=== PATIENT | male | born 1935 | race Caucasian/White ===

== ENCOUNTER → 2018-09-24 | Outpatient (REF) | payer MEDICARE, OTHER | LOC: M LAB LCGH 10:57 | PROVIDERS: ATTEND Nurse Practitioner Family | DX: D04.4 Carcinoma in situ of skin of scalp and neck (principal) ==

== ENCOUNTER → 2020-12-10 | Outpatient (REF) | payer MEDICARE | LOC: M LAB REF 19:03 | PROVIDERS: ATTEND Dermatology | DX: C44.229 Squamous cell carcinoma of skin of left ear and external auricular canal (principal) ==

== ENCOUNTER → 2024-12-05 | Outpatient (CLI) | payer MEDICARE | LOC: M SOG 06:56 | PROVIDERS: ATTEND Neuromusculoskeletal Medicine, Sports Medicine | DX: M25.561 Pain in right knee (principal) ==

== ENCOUNTER → 2025-01-13 | Outpatient (REF) | payer MEDICARE | LOC: M SFHCDERM 17:07 | PROVIDERS: ATTEND Dermatology | DX: C44.222 Squamous cell carcinoma of skin of right ear and external auricular canal (principal) ==